=== PATIENT | male | born 2000 | race Two or more races ===

== ENCOUNTER 2025-04-01 17:58 | Emergency (ER) | payer MEDICAID, SELFPAY ==
[2025-04-01 18:24] VITALS: BP 136/85; PULSE 76; RESP 18; TEMP 37.2; O2SAT 100; BMI 23.8
--- NOTE | 2025-04-01 18:48 | PD.EDURI ---
Upper Respiratory Inf. RME/HPI General Chief Complaint: Flu Like Symptoms Stated Complaint: COUGHED UP BLOOD Time Seen by Provider: 04/01/25 18:31 Arrival date/time: 04/01/25 17:58 24M with history of alcohol use presents to ED with 1 day of N/V with some bright red blood. Patient has been drinking recently. Patient denies cough and URI symptoms. There is also vague epigastric pain, but that is not new. Limitations: no limitations Related Data Previous Rx's ?Medication ?Instructions ?Recorded ondansetron 4 mg disintegrating 4 mg PO Q8H PRN nausea and 04/01/25 tablet vomiting #10 tabs Allergies Allergy/AdvReac Type Severity Reaction Status Date / Time No Known Allergies Allergy Verified 04/01/25 18:04 Review of Systems Review of Systems Systems Reviewed: All systems reviewed, normal except as documented Constitutional Constitutional: Reports system reviewed and no additional complaints, except as documented, Denies fever(s) and Denies headache(s) ENT Ears, Nose, Mouth, and Throat: Denies disequilibrium and Denies headache(s) Cardiovascular Cardiovascular: Reports system reviewed and no additional complaints, except as documented, Denies chest pain and Denies dyspnea Respiratory Respiratory: Reports system reviewed and no additional complaints, except as documented, Denies cough and Denies dyspnea Gastrointestinal Gastrointestinal: Reports system reviewed and no additional complaints, except as documented, Reports as per HPI, Reports abdominal pain, Reports hematemesis, Reports nausea and Reports vomiting Neurologic Neurologic: Reports system reviewed and no additional complaints, except as documented, Denies confusion, Denies disequilibrium and Denies headache(s) Psychiatric Psychiatric: Denies confusion Past Medical History Past Medical History CARDIAC: Negative Congestive Heart Failure RESPIRATORY: Negative Chronic Obstructive Pulmonary Disease (COPD) GENITOURINARY: Negative Renal Disease ENDOCRINE: Negative Diabetes Mellitus Type 1 or Diabetes Mellitus Type 2 Social History SMOKING STATUS: Current every day smoker ED Exam General Limitations: Present no limitations General appearance: Present alert and in no apparent distress Head Head exam: Present atraumatic Eye Eye exam: Present normal appearance, PERRL and EOMI ENT ENT exam: Present normal exam, normal oropharynx and mucous membranes moist Neck Neck exam: Present normal inspection, full ROM and trachea midline Chest Chest inspection: Present normal inspection and symmetric chest wall rise Respiratory Respiratory exam: Present normal lung sounds bilaterally Cardiovascular Cardiovascular exam: Present regular rate, normal rhythm and normal heart sounds Abdominal Exam Abdominal exam: Present soft and normal bowel sounds Extremities Exam Extremities exam: Present normal inspection and full ROM Back Exam Back exam: Present normal inspection and full ROM Neurological Exam Neurological exam: Present alert, oriented X3 and CN II-XII intact Psychiatric Psychiatric exam: Present normal affect and normal mood Skin Skin exam: Present warm, dry, intact and normal color Course Quality Measures none Orders Category Date Time Status Ondansetron Odt [Zofran Odt] Med 04/01/25 18:33 Discontinued 4 mg PO X1 ONE Vital Signs Vital signs: Vital Signs Temperature 98.9 F 04/01/25 18:24 Pulse Rate 76 04/01/25 18:24 Respiratory Rate 18 04/01/25 18:24 Blood Pressure 136/85 H 04/01/25 18:24 Pulse Oximetry (%) 100 04/01/25 18:24 Oxygen Delivery Method Room Air 04/01/25 18:24 O2 at 100% on RA and WNLs Upper Respiratory Infection MDM Narrative MDM Narrative:: 24M with history of alcohol use presents to ED with 1 day of N/V with some bright red blood. Patient has been drinking recently. Patient denies cough and URI symptoms. There is also vague epigastric pain, but that is not new. Physical exam reveals clear oropharynx. Normal WOB. No ab tenderness. Patient is afebrile, calm, and alert. Counseled to stop drinking and to follow-up with PCP for additional work-up. Patient data External records reviewed:: [facility] previous records Clinical information provided by:: patient Social determinants that could affect healthcare access:: alcohol use Patient has the following chronic illnesses:: alcohol use How is presenting disease/condition affected by chronic disease/condition?: exacerbated by Evaluation data The following diagnostics were reviewed and interpreted by me:: other (specify) (none) Lab and/or radiology exams considered but not ordered:: not ordered Interpretation Summary: n/a Medications / Prescriptions Medications or Prescriptions considered but not ordered:: ordered Medication administrations:: Medication Administration History Discontinued Medications Ondansetron HCl (Ondansetron Odt 4 Mg Tabrap) 4 mg PO X1 ONE; Protocol Stop: 04/01/25 18:34 above Consultations Consultation(s) initiated? (list below): No Diagnosis Upper Respiratory Differential Diagnosis: upper respiratory infection, croup, otitis media, sinusitis, viral infection, bronchitis, influenza, pharyngitis and other (florin-mahajan tear, gastritis, N/V) Most likely diagnosis given after review of the tests above:: N/V Admission Indicated Admission indicated?: not indicated Admission Request Was there a request for admission?: No Disposition Plan Disposition Plan: Discharge Discharge Attestation Discharge Attestation: The patient and all family members were given an opportunity to ask questions and understood the discharge instructions. Discharge instructions specifically effects, indications for sooner follow up or return to the emergency department, and the expected course of current diagnosis. Patient condition: Stable Discharge Plan Plan Patient Disposition: HOME (Self Care) Discharge Disposition comment: Stable Prescriptions/Referrals Prescriptions/Med Rec: New ondansetron 4 mg tablet,disintegrating 4 mg PO Q8H PRN (Reason: nausea and vomiting) Qty: 10 0RF Problem List Clinical Impression: Nausea and vomiting Patient/Caregiver Discharge Instructions Education Materials: ED Vomiting (Adult) Additional Instructions: Please follow-up with PCP within 24-48 hours and return immediately if symptoms worsen. Print Language: Latvian Stand Alone Forms: Patient Portal Info Letter MEDINA/DINO Supervising Physician MEDNIA/DINO Supervising Physician: Dr. Baker
[2025-04-01] MEDS: ONDANSETRON ODT 4 MG TABRAP PO (18:52)
[2025-04-01 18:55] VITALS: PULSE 68; RESP 18; TEMP 36.6; O2SAT 98
== END 2025-04-01 18:57 | disposition home or self-care (01) ==
LOC: SERX 18:38
PROVIDERS: Emergency Provider Emergency Medicine
DX: R11.2 Nausea with vomiting, unspecified (principal)
CPT/HCPCS: 99282; Q0162

== ENCOUNTER 2025-07-29 19:52 | Emergency (ER) | payer MEDICAID, SELFPAY ==
[2025-07-29 19:53] VITALS: BMI 21.7
[2025-07-29 20:05] VITALS: BP 131/92; PULSE 82; RESP 17; TEMP 37.1; O2SAT 99
--- NOTE | 2025-07-29 20:11 | EDNOTE_ITS ---
ED SOB =RME/HPI General Chief Complaint: Shortness of Breath/Dyspnea Stated Complaint: SOB, HANDS CRAMPING UP, NUMBNESS TO FACE Time Seen by Provider: 07/29/25 20:00 Arrival date/time: 07/29/25 19:52 RME / HPI RME / HPI Narrative: See [facility] for Dr. Barkley's HPI documentation. Related Data Previous Rx's ?Medication ?Instructions ?Recorded ondansetron 4 mg disintegrating 4 mg PO Q8H PRN nausea and 04/01/25 tablet vomiting #10 tabs albuterol sulfate 90 mcg/actuation 2 puff inhalation Q 6H PRN 07/29/25 aerosol inhaler shortness of breath or wheez ing #8.5 grams folic acid 1 mg tablet 1 mg PO QDAY #90 tabs lorazepam 2 mg tablet (Ativan) 2 mg PO Q8H #9 tabs 01/21 multivitamin 1 tab PO QDAY #90 tabs 07/29 ondansetron 4 mg disintegrating 4 mg PO TID PRN nausea and 07/29/25 tablet vomiting 30 days #10 tabs thiamine HCl (vitamin B1) 50 mg 50 mg PO QDAY #90 tabs 07/29/25 tablet Allergies Allergy/AdvReac Type Severity Reaction Status Date / Time No Known Allergies Allergy Verified 07/29/25 19:53 Review of Systems Review of Systems Systems Reviewed: All systems reviewed, normal except as documented Past Medical History Past Medical History CARDIAC: Negative Congestive Heart Failure RESPIRATORY: Negative Chronic Obstructive Pulmonary Disease (COPD) GENITOURINARY: Negative Renal Disease ENDOCRINE: Negative Diabetes Mellitus Type 1 or Diabetes Mellitus Type 2 Social History SMOKING STATUS: Current every day smoker ED Exam Narrative Physical exam: See [facility] for Dr. Barkley's physical exam documentation. Course Course Course Narrative: CXR is ordered for determining the etiology of shortness of breath. Quality Measures none Orders Category Date Time Status EKG (ED ONLY) *Do not use* NOW Care 07/29/25 20:18 Completed Saline [Insert IV] NOW Care 07/29/25 20:[address] head/brain wo con Stat Exams 07/29/25 20:18 Completed EKG (ED Only) Stat Exams 07/29/25 20:18 Draft XR chest 1V portable Stat Exams 07/29/25 20:19 Completed Alcohol, Blood Medical Stat Lab 07/29/25 21:03 Completed Beta Hydroxybutyrate Stat Lab 07/29/25 21:03 Completed Bilirubin,Direct Stat Lab 07/29/25 21:03 Completed CBC Stat Lab 07/29/25 21:03 Completed CK [Creatine Kinase] Stat Lab 07/29/25 21:03 Completed CMP [Comprehensive Metabolic Panel] Stat Lab 07/29/25 21:03 Completed CRP [C-Reactive Protein] Stat Lab 07/29/25 21:03 Completed Drug Screen,Urine Stat Lab 07/29/25 21:05 Completed ESR [Sed Rate (ESR)] Stat Lab 07/29/25 21:03 Completed Magnesium Stat Lab 07/29/25 21:03 Completed Procalcitonin Stat Lab 07/29/25 21:03 Completed TSH [Thyroid Stimulating Hormone] Stat Lab 07/29/25 21:03 Completed Troponin I Stat Lab 07/29/25 21:03 Completed UA, C/S IF [Urinalysis, C/S if Indicated] Stat Lab 07/29/25 21:05 Completed Albuterol/Ipratr Rt Kell [Duoneb Rt Kell] Med 07/29/25 23:24 Discontinued 3 ml INH X1 ONE Diazepam Inj [Valium Inj] Med 07/29/25 23:10 Discontinued 7.5 mg IVP X1 ONE KCL 10% Liq UDC 15 ML Med 07/29/25 22:39 Discontinued 40 meq PO X1 ONE Ketorolac Inj [Toradol Inj] Med 07/29/25 20:15 Discontinued 30 mg IVP X1 ONE MethylPREDNISolone.* [SoluMEDROL Inj] Med 07/29/25 20:15 Discontinued 125 mg IVP X1 ONE MethylPREDNISolone.* [SoluMEDROL Inj] Med 07/29/25 23:24 Discontinued 125 mg IVP X1 ONE Ringers Lactated 1000 ml [Lactated Ringers] 1,000 ml Med 07/29/25 22:39 Discontinued IV 1,000 mls/hr Sodium Chloride 0.9% 1000 ml [Ns] 1,000 ml Med 07/29/25 20:15 Discontinued IV 999 mls/hr Thiamine Inj [Vitamin B-1 Inj] Med 07/29/25 22:40 Discontinued 100 mg IVP X1 ONE Vital Signs Vital signs: Vital Signs Temperature 98.7 F 07/29/25 20:05 Pulse Rate 82 07/29/25 20:05 Respiratory Rate 17 07/29/25 20:05 Blood Pressure 131/92 H 07/29/25 20:05 Pulse Oximetry (%) 99 07/29/25 20:05 Oxygen Delivery Method Room Air 07/29/25 20:05 Shortness of Breath / Dyspnea MDM Narrative MDM Narrative:: This section includes all my notes and documentations, including HPI, PE, and ED course. Kwaku Barkley MD HPI: 24yo male here with multiple concerns. For several days, he reports facial numbness and muscle cramping and shortness of breath and fatigue and malaise. No headache or dizziness. No chest pain. No nausea or vomiting. No abdominal pain. No other complaints. ROS: All negative except as documented in HPI. Physical Exam: General: Alert and oriented. No acute distress when remaining still. Eyes: Conjunctivae and lids clear. ENT: No nasal congestion. Neck: Supple. Heart: RRR. Lungs: No respiratory distress. Good air movement. No rhonchi, wheezing, rales. Abdomen: Soft and nontender. Normal bowel sounds. No distension. No rebound or guarding. Back: No CVA tenderness. Skin: Warm and dry. Neuro: Alert and oriented X 3. Cranial nerves II through XII grossly normal. No peripheral motor deficits. I reviewed all diagnostic test results. My interpretation of the EKG is sinus rhythm with nonspecific ST-T changes. My interpretation of the chest x-ray is NAD. My review of the CT head report is NAD. Blood tests remarkable for K 2.9, AST 381, ALT 217, Alkaline Phosphatase 125, Total CK 230, Alcohol 283.3. Urine tests negative. At this point, diagnoses include: 1. Alcohol abuse 2. Bronchospasm Treatment here included: 1. IV fluid 2. Toradol 3. Solumedrol 4. Potassium 5. Thiamine Significant improvement noted. Recommended outpatient care. Based on my best medical judgment, made decision no further evaluation or treatment indicated at this time. Patient understands and agrees to the discharge instructions customized and printed, see below. Discharge Instructions from Dr. Barkley printed for you: 1. To help prevent alcohol withdrawal, take Ativan 2 mg every 8 hours as pres cribed. 2. To prevent serious and potentially fatal future injuries and illnesses, quit alcohol at all cost. 3. Eat regular nutritious meals. For good hydration, increase oral fluid and maintain clear urine. If dark or yellow, increase oral fluid. Zofran for nausea/vomiting. 4. Take multivitamin and folic acid and thiamine every day as prescribed. 5. See a private doctor on 07/30/25 for recheck and further care. Ask for help to quit alcohol without alcohol withdrawal. You may need more prescription for Ativan. Ask to review all test results and official radiology reports, to make sure you receive all necessary follow-ups and monitoring. 6. Seek immediate medical care with worsening or with any concerns. Kwaku Barkley MD Patient data External records reviewed:: [facility] previous records (Per chart review, patient was seen here on 04/01/25 for nausea and vomiting.) Clinical information provided by:: patient Social determinants that could affect healthcare access:: none Patient has the following chronic illnesses:: none How is presenting disease/condition affected by chronic disease/condition?: no chronic disease Evaluation data The following diagnostics were reviewed and interpreted by me:: lab results, radiology exam(s) and EKG tracing(s) (My interpretation of the EKG is: Sinus rhythm (81 bpm) with nonspecific ST-T changes. Kwaku Barkley MD) Lab and/or radiology exams considered but not ordered:: none Interpretation Summary: I reviewed all diagnostic test results. My interpretation of the EKG is sinus rhythm with nonspecific ST-T changes. My interpretation of the chest x-ray is NAD. My review of the CT head report is NAD. Blood tests remarkable for K 2.9, AST 381, ALT 217, Alkaline Phosphatase 125, Total CK 230, Alcohol 283.3. Urine tests negative. Medications / Prescriptions Medications or Prescriptions considered but not ordered:: none Medication administrations:: Medication Administration History Discontinued Medications Albuterol/Ipratropium (Albuterol/Ipratropium (Duoneb) Rt Kell 3 Ml Nebu) 3 ml INH X1 ONE Stop: 07/29/25 23:25 Last Admin: 07/29/25 23:41 Dose: 3 ml Documented By: AH Diazepam (Diazepam Inj 5 Mg/Ml Vial 2 Ml) 7.5 mg IVP X1 ONE Stop: 07/29/25 23:11 Last Admin: 07/29/25 23:20 Dose: 7.5 mg Documented By: WO Sodium Chloride (Ns) 1,000 mls @ 999 mls/hr IV .Q1H1M ONE Stop: 07/29/25 21:15 Last Infusion: 07/29/25 21:58 Dose: Infused Documented By: Admin: 07/29/25 20:57 Dose: 999 mls/hr Documented By: LATOYA Lactated Ringer's (Lactated Ringers) 1,000 mls @ 1,000 mls/hr IV .Q1H ONE Stop: 07/29/25 23:38 Last Admin: 07/29/25 22:50 Dose: 1,000 mls/hr Documented By: LATOYA Ketorolac Tromethamine (Ketorolac Inj 30 Mg/Ml Vial) 30 mg IVP X1 ONE Stop: 07/29/25 20:16 Last Admin: 07/29/25 20:56 Dose: 30 mg Documented By: LATOYA Methylprednisolone Sodium Succinate (Methylprednisolone Sod Succ 62.5 Mg/Ml 2ml Vial) 125 mg IVP X1 ONE Stop: 07/29/25 20:16 Last Admin: 07/29/25 20:57 Dose: 125 mg Documented By: LATOYA Methylprednisolone Sodium Succinate (Methylprednisolone Sod Succ 62.5 Mg/Ml 2ml Vial) 125 mg IVP X1 ONE Stop: 07/29/25 23:25 Last Admin: 07/29/25 23:33 Dose: Not Given Documented By: LATOYA Non-Admin Reason: Cancelled by Provider Potassium Chloride (Potassium Chloride 10% 20 Meq/15 Ml Udc) 40 meq PO X1 ONE Stop: 07/29/25 22:40 Last Admin: 07/29/25 22:49 Dose: 40 meq Documented By: LATOYA Thiamine HCl (Thiamine Inj 100 Mg/Ml Vial 2 Ml) 100 mg IVP X1 ONE Stop: 07/29/25 22:41 Last Admin: 07/29/25 22:49 Dose: 100 mg Documented By: LATOYA IV fluid, Toradol, Solumedrol, Potassium, Thiamine Consultations Consultation(s) initiated? (list below): No Diagnosis Shortness of Breath Differential Diagnosis: acute exacerbation of chronic obstructive airways disease, congestive heart failure, community acquired pneumonia, asthma with exacerbation and pulmonary embolism Most likely diagnosis given after review of the tests above:: Alcohol abuse and bronchospasm Admission Indicated Admission indicated?: not indicated Explain why admission is indicated or not indicated:: With significant improvement and no condition needing emergent intervention, there was no indication for admission. Admission Request Was there a request for admission?: No Disposition Plan Disposition Plan: Discharge Discharge Attestation Discharge Attestation: The patient and all family members were given an opportunity to ask questions and understood the discharge instructions. Discharge instructions specifically effects, indications for sooner follow up or return to the emergency department, and the expected course of current diagnosis. Patient condition: Stable Discharge Plan Plan Patient Disposition: HOME (Self Care) Prescriptions/Referrals Prescriptions/Med Rec: New multivitamin Tablet 1 tab PO QDAY Qty: 90 3RF lorazepam [Ativan] 2 mg tablet 2 mg PO Q8H Qty: 9 0RF folic acid 1 mg tablet 1 mg PO QDAY Qty: 90 3RF ondansetron 4 mg tablet,disintegrating 4 mg PO TID PRN (Reason: nausea and vomiting) 30 Days Qty: 10 0RF thiamine HCl (vitamin B1) 50 mg tablet 50 mg PO QDAY Qty: 90 1RF albuterol sulfate 90 mcg/actuation HFA aerosol inhaler 2 puff inhalation Q6H PRN (Reason: shortness of breath or wheezing) Qty: 8.5 0RF No Action ondansetron 4 mg tablet,disintegrating 4 mg PO Q8H PRN (Reason: nausea and vomiting) Qty: 10 0RF Referrals: No Primary/Family,Physician [Primary Care Provider] - In 1 week Problem List Clinical Impression: Alcohol abuse, Bronchospasm Patient/Caregiver Discharge Instructions Discharge Activity: activity as tolerated Education Materials: ED Alcohol Abuse Additional Instructions: Discharge Instructions from Dr. Barkley printed for you: 1.? To help prevent alcohol withdrawal, take Ativan 2 mg every 8 hours as prescribed. 2.? To prevent serious and potentially fatal future injuries and illnesses, quit alcohol at all cost. 3.? Eat regular nutritious meals. For good hydration, increase oral fluid and maintain clear urine.? If dark or yellow, increase oral fluid. Zofran for nausea/vomiting. 4.? Take multivitamin and folic acid and thiamine every day as prescribed. 5.? See a private doctor on 07/30/25 for recheck and further care. Ask for help to quit alcohol without alcohol withdrawal. You may need more prescription for Ativan. Ask to review all test results and official radiology reports, to make sure you receive all necessary follow-ups and monitoring. 6.? Seek immediate medical care with worsening or with any concerns. Print Language: Greenlandic Stand Alone Forms: Katharine Award Info., Work/School Release, Patient Portal Info Letter
--- NOTE | 2025-07-29 20:18 | EKG_ITS ---
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
--- NOTE | 2025-07-29 20:18 | XR_ITS ---
Examination: CT brain head without contrast. 2-D sagittal coronal reconstructions Date and time of exam:July 29, 2025 1009 hrs. Indications: Numbness in the face cramps in the extremities right arm numbness today CTDI: vol (mGy):48 DLP: (mGycm):945 Technique: Multiple CT axial sections of the brain have been obtained, 5 mm slice thickness. Contrast has not been administered. 2-D sagittal, coronal reconstructions have been obtained Low dose protocols were performed. One or more of the following dose reduction techniques were used; automated exposure control, adjustment of the mA and/or KV according to patient size, use of iterative reconstruction technique. Findings: No significant ventricular enlargement. Intra-axial or extra-axial hemorrhage density is not seen. No mass effect or midline shift Basal cisterns are not remarkable. Fourth ventricle is midline. Cranial vault intact. Impression: Negative for acute hemorrhage, mass effect or midline shift As clinically warranted, brain MRI follow-up would best assess for demyelinating disease, acute ischemic change
--- NOTE | 2025-07-29 20:19 | XR_ITS ---
Examination: PA chest single view Technique: Upright PA chest single view. Date and time: July 29, 2025, 2019 hrs. Indications: Shortness of breath, difficulty breathing, coughing fever one week. Findings: Normal heart size. Lungs are clear. The osseous structures are intact. Impression: No active disease.
[2025-07-29] MEDS: KETOROLAC INJ 30 MG/ML VIAL IVP (20:56)
[2025-07-29] MEDS: MethylPREDNISolone SOD SUCC 62.5 MG/ML 2ML VIAL 125 MG IVP (20:57)
[2025-07-29] MEDS: SODIUM CHLORIDE 0.9% 1000 ML 1,000 ML 999 ML IV (20:57)
[2025-07-29 21:20] LABS: Collection Type, Urine Clean Catch; Squamous Epithelial Cell,Urine 0 /hpf (0-5); WBC,Urine 0 /hpf (0-5)
[2025-07-29 21:23] LABS: Basophils # (Auto) 0.0 Thou/mm3 (0.0-0.2); Basophils % (Auto) 1 % (0-2.5); Eosinophils # (Auto) 0.0 Thou/mm3 (0.0-0.5); Eosinophils % (Auto) 1 % (0-10); Hematocrit 44.6 % (41.0-53.0); Hemoglobin 16.0 g/dL (13.5-16.0); Immature Granulocytes Auto 0.01 Thou/mm3 (0.00-0.00); Lymphocytes # (Auto) 2.5 Thou/mm3 (1.0-4.8); Lymphocytes % (Auto) 42 % (10-50); Mean Corpuscular HGB Conc 35.9 g/dl (31.0-37.0); Mean Corpuscular Hemoglobin 34.3 pg (25.0-35.0); Mean Corpuscular Volume 96 fL (80-100); Monocytes # (Auto) 0.6 Thou/mm3 (0.0-0.8); Monocytes % (Auto) 10 % (0-12); Neutrophils # (Auto) 2.8 Thou/mm3 (1.8-7.7); Neutrophils % (Auto) 47 % (37-80); Nucleated Red Blood Cell # 0.00 Thou/mm3 (0.00-0.00); Nucleated Red Blood Cell % 0 /100 WBC (0); Platelet Count 338 Thou/mm3 (140-440); RDW Standard Deviation 39.9 fL (35.1-43.9); Red Blood Count 4.67 Miln/mm3 (4.50-5.90); White Blood Count 5.9 Thou/mm3 (3.8-10.6)
[2025-07-29 21:31] LABS: Amphetamine/Methamp Scrn,U Negative (Negative); Bacteria,Urine Rare; Barbiturate Screen,Urine Negative (Negative); Benzodiazepines Screen,Urine Negative (Negative); Benzoylecgonine Screen, Ur Negative (Negative); Bilirubin,Urine Negative (Negative); Blood,Urine Negative (Negative); Clarity,Urine Clear (Clear/Hazy); Color,Urine Colorless (Lt Yel-Yel); Culture Indicated,Urine Not Indicated; Fentanyl Screen,Urine Negative (Negative); Glucose, Urine Negative (Negative); Ketones,Urine Negative (Negative); Leukocyte Esterase,Urine Negative (Negative); Nitrite,Urine Negative (Negative); Opiate Screen,Urine Negative (Negative); PH,Urine 7.5 (5.0-7.0); Protein,Urine Negative (Neg - Trace); RBC,Urine < 1 /hpf (0-3); Specific Gravity,Urine 1.004 (1.001-1.035); THC Screen,Urine Negative (Negative); Urobilinogen,Urine Negative mg/dL (0.0-1.0)
[2025-07-29 21:32] LABS: Beta Hydroxybutyrate 0.1 mmol/L (<0.6)
[2025-07-29 21:52] LABS: Alanine Aminotransferase 217 U/L (10-49); Albumin, Serum 5.1 gm/dL (3.5-5.0); Albumin/Globulin Ratio 2.0 (1.2-2.2); Alcohol, Blood Medical 283.3 mg/dL (0-10.0); Alkaline Phosphatase 126 U/L (46-116); Anion Gap 15 (7-16); Aspartate Amino Transferase 381 U/L (0-34); BUN/Creatinine Ratio 5 Ratio (12-20); Bilirubin,Direct 0.3 mg/dL (0.0-0.3); Bilirubin,Total 0.8 mg/dL (0.3-1.2); Blood Urea Nitrogen < 5 mg/dL (9-23); C-Reactive Protein < 0.5 mg/dL (0.0-0.9); Calcium 10.3 mg/dL (8.3-10.6); Calcium (Corrected) 10.3 mg/dL (8.5-10.1); Carbon Dioxide 28.5 mMol/L (20.0-31.0); Chloride 100 mMol/L (98-107); Creatine Kinase 230 U/L (34-171); Creatinine (Component) 1.0 mg/dL (0.6-1.3); Estimated Creatinine Clearance 100.4 mL/min (>60); Globulin 2.6 gm/dL (2.3-3.5); Glucose 95 mg/dL (74-106); Magnesium 1.9 mg/dL (1.6-2.6); Osmolality,Calculated 282 (275-295); Potassium 2.9 mMol/L (3.4-5.1); Procalcitonin 0.10 ng/ml (0.0-0.49); Sodium 143 mMol/L (136-145); Thyroid Stimulating Hormone 2.53 uIU/mL (0.55-4.78); Total Protein 7.7 gm/dL (5.7-8.2); Troponin I < 0.020 ng/mL (0.0-0.045); eGFR > 60 See Note
[2025-07-29 22:00] VITALS: BP 119/72; PULSE 78; RESP 15; TEMP 36.6; O2SAT 97
[2025-07-29 22:06] LABS: Sed Rate (ESR) 8 mm/hr (0-15)
[2025-07-29] MEDS: THIAMINE INJ 100 MG/ML VIAL 2 ML IVP (22:49)
[2025-07-29] MEDS: POTASSIUM CHLORIDE 10% 20 MEQ/15 ML UDC 40 MEQ PO (22:49)
[2025-07-29] MEDS: RINGERS LACTATED 1000 ML 1,000 ML IV (22:50)
[2025-07-29] MEDS: DIAZEPAM INJ 5 MG/ML VIAL 2 ML 7.5 MG IVP (23:20)
[2025-07-29 23:36] VITALS: BP 117/79; PULSE 81; RESP 20; TEMP 36.4; O2SAT 97
[2025-07-29] MEDS: ALBUTEROL/IPRATROPIUM (Duoneb) RT SOL 3 ML NEBU INH (23:41)
[2025-07-29 23:43] VITALS: PULSE 82; RESP 16; O2SAT 100
== END 2025-07-29 23:49 | disposition home or self-care (01) ==
PROVIDERS: Emergency Provider Emergency Medicine
DX: J98.01 Acute bronchospasm (principal); F10.10 Alcohol abuse, uncomplicated; R20.0 Anesthesia of skin; R25.2 Cramp and spasm; I49.8 Other specified cardiac arrhythmias; F17.200 Nicotine dependence, unspecified, uncomplicated
CPT/HCPCS: 36415; 70450; 71045; 80053; 80307; 80320; 81001; 82010; 82248; 82550; 83735; 84145; 84443; 84484; 85025; 85652; 86140; 93005; 94640; 96361; 96374; 96375; 99284; A9270; J1885; J2919; J3360; J3411; J7030; J7120; G0480